=== PATIENT | female | born 1995 | race Hispanic/Latino ===

== ENCOUNTER 2023-08-15 12:30 | Emergency (ER) | payer SELFPAY ==
[~2023-08-15] VITALS: Ht 165.1 cm; Wt 102.1 kg
[2023-08-15 12:57] VITALS: O2SAT 100
[2023-08-15] MEDS: KETOROLAC TROMETHAMINE 60 MG/2 ML VIAL IM ONE (14:03)
[2023-08-15] MEDS: CYCLOBENZAPRINE HCL 10 MG TAB PO ONE (14:03)
[2023-08-15] MEDS ORDERED: CYCLOBENZAPRINE10 MG PO (15:08)
== END 2023-08-15 15:20 | disposition home or self-care (01) ==
LOC: ER 13:08
DX: S39.012A Strain of muscle, fascia and tendon of lower back, initial encounter (principal); X50.1XXA Overexertion from prolonged static or awkward postures, initial encounter; Y92.89 Other specified places as the place of occurrence of the external cause
CPT/HCPCS: 81025; 99283; J1885